=== PATIENT | female | born 1960 | race Caucasian/White ===

== ENCOUNTER 2017-03-01 07:01 | Emergency (ER) | payer SELFPAY ==
[~2017-03-01] VITALS: Ht 165.1 cm; Wt 116.8 kg
[~2017-03-01 07:01] MED LIST: ACET1TAB43 PO; ALBU8.5H6 INH; ASP81CT; ATEN25PO PO; AZIT250T81 PO; DLT30T PO; FAMO-107 PO; HC2.5C30 TOP
[2017-03-01 08:06] LABS: BASOPHILS % (AUTO) 0 % (0-2); EOSINOPHILS % (AUTO) 0 % (0-4); LYMPHOCYTES # (AUTO) 2.4 X10^3; MEAN CORPUSCULAR HEMOGLOBIN 27.8 PG (26.0-34.0); MEAN CORPUSCULAR HGB CONC 32.2 g/dL (31.0-37.0); MEAN CORPUSCULAR VOLUME 86 FL (80-100); MEAN PLATELET VOLUME 10.6 FL (6.0-9.5); MONOCYTES # (AUTO) 0.6 X10^3; MONOCYTES % (AUTO) 8 % (3-11); NEUTROPHILS # (AUTO) 4.9 X10^3; NEUTROPHILS % (AUTO) 61 % (51-67); PLATELET COUNT 266 10^3uL (150-450)
[2017-03-01 08:17] LABS: ALBUMIN 4.8 g/dL (3.4-5.0); ANION GAP 18.8 MEQ/L (3-15); CALCULATED IONIZED CALCIUM 3.7 mg/dL (3.8-4.6); TOTAL PROTEIN 8.7 g/dL (6.4-8.5)
[2017-03-01 11:45] VITALS: BP 152/82
== END 2017-03-01 11:18 | disposition home or self-care (01) ==
LOC: EDUNIT# 07:01 → ED 07:04
DX: A08.4 Viral intestinal infection, unspecified (principal)
CPT/HCPCS: 36415; 80053; 85025; 87045; 87046; 87324; 87449; 89055; 99282; 99283